=== PATIENT | female | born 1945 | race Caucasian/White ===

== ENCOUNTER 2016-09-06 11:45 | Day surgery (SDC) | payer OTHER ==
[2016-09-04 14:04] LABS: BLOOD UREA NITROGEN 29 mg/dL (7-18)
[2016-09-04 14:08] LABS: ASPARTATE AMINO TRANSFERASE 19 U/L (15-37)
[~2016-09-06] VITALS: Ht 160 cm; Wt 78.0 kg
[~2016-09-06 11:45] MED LIST: ATOR20TA PO; CYCL5TAB PO; EPINEPHRINE 1 MG/ML, 1ML ONE; GABA300C10 PO; GLIP10TA13 PO; LIDOCAINE/PF 1%, 30ML ONE; LISI1TAB5 PO; LORA10TA3 PO; METF10002 PO; PROP80TA PO; ROPIvacaine/PF 0.5%, 30 ML ONE; TRAM50TA2 PO
[2016-09-06] MEDS ORDERED: LIDOCAINE 1%, 2ML ONE (12:14)
[2016-09-06] MEDS ORDERED: LACTATED RINGERS 1,000 ML IV SCH (12:15)
[2016-09-06 12:16] VITALS: BP 123/81
[2016-09-06] MEDS ORDERED: MIDAZOLAM 1 MG/ML, 2ML ONE (13:07)
[2016-09-06] MEDS ORDERED: FENTANYL PF 250 MCG/5ML ONE (13:07)
[2016-09-06] MEDS ORDERED: CEFAZOLIN 1,000 MG ONE (13:10)
[2016-09-06] MEDS ORDERED: DEXAMETHASONE 4 MG/ML, 1ML ONE (13:10)
[2016-09-06] MEDS ORDERED: ONDANSETRON 2MG/ML, 2ML ONE (13:10)
[2016-09-06] MEDS ORDERED: PROPOFOL 10 MG/ML, 20ML ONE (13:10)
[2016-09-06] MEDS ORDERED: HYDROmorphone 1 MG/ML, 1ML IV PRN (14:00)
[2016-09-06] MEDS ORDERED: ACETAMINOPHEN 325 MG TABLET PO PRN (14:00)
[2016-09-06] MEDS ORDERED: MEPERIDINE/PF 25MG/0.5ML IVPush PRN (14:00)
[2016-09-06] MEDS: FENTANYL PF 100 MCG/2ML IV PRN ×2 (14:00→14:20)
[2016-09-06] MEDS ORDERED: ONDANSETRON 2MG/ML, 2ML IVPush PRN (14:00)
[2016-09-06] MEDS ORDERED: OXYcodone 5 MG/5 ML ORAL.SOL UDC PO PRN (14:00)
[2016-09-06] MEDS ORDERED: ACETAMINOPHEN 650 MG/20.3 ML UDC ONE (14:09)
[2016-09-06] MEDS ORDERED: FENTANYL PF 100 MCG/2ML ONE (14:09)
[2016-09-06] MEDS ORDERED: OXYcodone 5 MG/5 ML ORAL.SOL UDC ONE (14:10)
[2016-09-06] MEDS ORDERED: DIAZEPAM 5 MG TABLET ONE (14:50)
[2016-09-06] MEDS ORDERED: DIAZEPAM 5 MG TABLET PO ONE (15:00)
[2016-09-06] MEDS ORDERED: DIAZEPAM 5 MG/ML, 2ML IV PRN (15:00)
== END 2016-09-06 15:55 ==
LOC: OUT 11:45
PROVIDERS: ATTEND Orthopaedic Surgery
DX: S83.231A Complex tear of medial meniscus, current injury, right knee, initial encounter (principal); S83.281A Other tear of lateral meniscus, current injury, right knee, initial encounter; M94.261 Chondromalacia, right knee; I10 Essential (primary) hypertension; E11.9 Type 2 diabetes mellitus without complications; Z88.8 Allergy status to other drugs, medicaments and biological substances; M65.861 Other synovitis and tenosynovitis, right lower leg; X58.XXXA Exposure to other specified factors, initial encounter; Y93.9 Activity, unspecified; Y92.9 Unspecified place or not applicable; Y99.9 Unspecified external cause status
CPT/HCPCS: 29880; 36415; 80053; 82962; 93005; J0171; J0690; J1100; J2250; J2405; J2704; J2795; J3010; J3490; J7120

== ENCOUNTER → 2017-07-10 | Outpatient (CLI) | payer MEDICARE, OTHER ==
[~2017-07-10] MED LIST changes: -EPINEPHRINE 1 MG/ML, 1ML ONE; -LIDOCAINE/PF 1%, 30ML ONE; -ROPIvacaine/PF 0.5%, 30 ML ONE
== END | disposition home or self-care (01) ==
LOC: CFH 09:37
PROVIDERS: ATTEND Genetic Counselor, MS
DX: Z12.31 Encounter for screening mammogram for malignant neoplasm of breast (principal)
CPT/HCPCS: 77063; 77067

== ENCOUNTER 2017-10-03 06:02 | Observation (INO) | payer OTHER ==
[~2017-10-03] VITALS: Ht 162.6 cm; Wt 87.1 kg
[~2017-10-03 06:02] MED LIST changes: +DOCU100T3 PO; +DULO30CA2 PO; +MELA5TAB19 PO; +MONT10TA9 PO; +VITAMIN B12 PO; +VITAMIN B50 PO
[2017-10-03] MEDS ORDERED: FENTANYL PF 250 MCG/5ML ONE (06:50)
[2017-10-03] MEDS ORDERED: LACTATED RINGERS 1,000 ML IV SCH (06:55)
[2017-10-03] MEDS ORDERED: LIDOCAINE-MPF 1%, 5ML ONE (06:59)
[2017-10-03] MEDS ORDERED: GABAPENTIN 300 MG CAPSULE PO ONE (07:00)
[2017-10-03] MEDS ORDERED: ACETAMINOPHEN 500 MG TABLET PO ONE (07:00)
[2017-10-03] MEDS ORDERED: LIDOCAINE-MPF 1%, 2ML INFIL ONE (07:00)
[2017-10-03] MEDS ORDERED: SCOPOLAMINE PATCH, 1.5MG PATCH.TD72 TD ONE (07:00)
[2017-10-03] MEDS ORDERED: LIDOCAINE/PF 1%, 30ML ONE (07:12)
[2017-10-03] MEDS ORDERED: EPINEPHRINE 1 MG/ML, 1ML ONE (07:12)
[2017-10-03] MEDS ORDERED: ROPIvacaine/PF 0.5%, 30 ML ONE (07:12)
[2017-10-03] MEDS ORDERED: NEOSTIGMINE 1 MG/ML, 10ML ONE (08:07)
[2017-10-03] MEDS ORDERED: ROCURONIUM 10MG/ML,5ML ONE (08:07)
[2017-10-03] MEDS ORDERED: PROPOFOL 10 MG/ML, 20ML ONE (08:07)
[2017-10-03] MEDS ORDERED: CEFAZOLIN 1,000 MG ONE (08:07)
[2017-10-03] MEDS ORDERED: DEXAMETHASONE 4 MG/ML, 1ML ONE (08:07)
[2017-10-03] MEDS ORDERED: ONDANSETRON 2MG/ML, 2ML ONE ×2 (08:07→08:55)
[2017-10-03] MEDS ORDERED: GLYCOPYRROLATE 0.2MG/1ML, 5ML ONE (08:07)
[2017-10-03] MEDS ORDERED: SUCCINYLCHOLINE 20 MG/ML, 10ML ONE (08:07)
[2017-10-03] MEDS ORDERED: FENTANYL PF 100 MCG/2ML IV PRN (08:30)
[2017-10-03] MEDS ORDERED: OXYcodone 5 MG/5 ML ORAL.SOL UDC PO PRN (08:30)
[2017-10-03] MEDS ORDERED: PROMETHAZINE 25 MG/ML, 1ML IV PRN (08:30)
[2017-10-03] MEDS ORDERED: DIPHENHYDRAMINE 50 MG/ML, 1ML IM PRN (08:30)
[2017-10-03] MEDS ORDERED: LABETALOL 5MG/ML, 20ML IV PRN (08:30)
[2017-10-03] MEDS ORDERED: ONDANSETRON 2MG/ML, 2ML IV PRN (08:30)
[2017-10-03] MEDS ORDERED: OXYcodone 5 MG/5 ML ORAL.SOL UDC ONE (08:40)
[2017-10-03] MEDS ORDERED: HYDROmorphone 2 MG/ML, 1ML ONE (08:40)
[2017-10-03] MEDS: HYDROmorphone 1 MG/ML, 1ML IV PRN ×2 (08:44→08:53)
[2017-10-03] MEDS ORDERED: PROMETHAZINE 25 MG/ML, 1ML ONE (09:28)
[2017-10-03] MEDS: APAP/CODEINE 300/30MG TABLET PO PRN (17:15)
[2017-10-03] MEDS: LACTATED RINGERS 1,000 ML IV SCH (19:00)
[2017-10-03 19:54] VITALS: BP 99/64
[2017-10-03] MEDS: PROPRANOLOL 40 MG TABLET PO SCH (21:00)
[2017-10-03] MEDS ORDERED: MONTELUKAST 10 MG TABLET PO SCH (21:00)
[2017-10-03] MEDS ORDERED: PROPRANOLOl 80 MG CAP.SA.24H PO SCH (21:00)
[2017-10-03] MEDS ORDERED: MELATONIN 5 MG TABLET PO SCH (21:00)
[2017-10-03] MEDS ORDERED: ATORVASTATIN 20 MG TABLET PO SCH (21:00)
[2017-10-03] MEDS: CYCLOBENZAPRINE 10 MG TABLET PO SCH (21:21)
[2017-10-03] MEDS: GABAPENTIN 300 MG CAPSULE PO SCH (21:22)
[2017-10-03 23:50] VITALS: BP 93/55
[2017-10-04] MEDS: APAP/CODEINE 300/30MG TABLET PO PRN ×2 (01:30→08:25)
[2017-10-04 04:13] VITALS: BP 102/60
[2017-10-04 07:10] VITALS: BP 90/56
[2017-10-04] MEDS ORDERED: metFORMIN 500 MG TABLET PO SCH (08:00)
[2017-10-04] MEDS: CYCLOBENZAPRINE 10 MG TABLET PO SCH (08:16)
[2017-10-04] MEDS: PROPRANOLOL 40 MG TABLET PO SCH (08:16)
[2017-10-04] MEDS: GABAPENTIN 300 MG CAPSULE PO SCH (08:17)
[2017-10-04] MEDS: LACTATED RINGERS 1,000 ML IV SCH (08:20)
[2017-10-04] MEDS ORDERED: DOCUSATE 100 MG CAPSULE PO SCH (09:00)
[2017-10-04] MEDS ORDERED: CYANOCOBALOMIN 100MCG TABLET PO SCH (09:00)
[2017-10-04] MEDS ORDERED: HYDROCHLOROTHIAZIDE 12.5 MG CAPSULE PO SCH (09:00)
[2017-10-04] MEDS ORDERED: LORATADINE 10 MG TABLET PO SCH (09:00)
[2017-10-04] MEDS ORDERED: LISINOPRIL 20 MG TABLET PO SCH (09:00)
[2017-10-04] MEDS ORDERED: MULTIVITS,STRESS FORMULA 1 TABLET PO SCH (09:00)
[2017-10-04] MEDS ORDERED: DULOXETINE 30 MG CAPSULE.DR PO SCH (09:00)
[2017-10-04] MEDS ORDERED: ACET1TAB64 PO (13:25)
== END 2017-10-04 13:40 | disposition home or self-care (01) ==
LOC: OUT 06:02 → ORIP 16:39 → 4NOR 17:43 → DCLOUNGE 10-04 13:22
PROVIDERS: ADMIT Orthopaedic Surgery; ATTEND Orthopaedic Surgery
DX: S83.239A Complex tear of medial meniscus, current injury, unspecified knee, initial encounter (principal); M94.261 Chondromalacia, right knee; M65.9 Synovitis and tenosynovitis, unspecified; E11.9 Type 2 diabetes mellitus without complications; X58.XXXA Exposure to other specified factors, initial encounter; Y93.89 Activity, other specified; Y92.89 Other specified places as the place of occurrence of the external cause; Y99.8 Other external cause status
CPT/HCPCS: 29875; 29880; 82962; G0378; J0171; J0330; J0690; J1100; J1170; J2405; J2550; J2704; J2710; J2795; J3010; J3490; J7120